=== PATIENT | female | born 1990 | race Caucasian/White ===

== ENCOUNTER 2021-03-22 05:59 | Emergency (ER) | payer OTHER ==
[~2021-03-22] VITALS: Ht 149.9 cm; Wt 86.3 kg
[2021-03-22 06:03] VITALS: BP 144/68
[2021-03-22] MEDS ORDERED: diazepam 5mg tablet PO ONE (08:35)
[2021-03-22] MEDS ORDERED: ketorolac trometh. 30mg/ml inj. IM ONE (08:35)
== END 2021-03-22 09:49 | disposition home or self-care (01) ==
LOC: ER 06:00
DX: M54.5 Low back pain (principal); G89.29 Other chronic pain; Z88.8 Allergy status to other drugs, medicaments and biological substances; Z88.6 Allergy status to analgesic agent
CPT/HCPCS: 96372; 99283; J1885